=== PATIENT | female | born 1970 | race Caucasian/White ===

== ENCOUNTER 2017-07-08 09:59 | Emergency (ER) | payer OTHER ==
[2017-07-08 10:03] VITALS: TEMP 98.7; BMI 33.3
--- NOTE | 2017-07-08 10:14 | PDOC ---
Attending Attestation - HPI HPI: 07/08/17 11:13 The patient is a 47-year-old female, with a significant past medical history of type II diabetes and anemia, who presents to the ED with 1-month of vaginal bleeding. The patient states that her blood flow is light on some days and heavy on others. She presents here today because she experienced heavy bleeding overnight and went through 5 soaked pads; clots were noted. The patient was started on progesterone 9 days ago by her Oil Field Laborer doctor. The patient is concerned about the bleeding since she was recently admitted to the hospital 2 weeks ago for a hemoglobin of 5.9 and received 3 units. The patient denies any fever, chills, nausea, vomiting, diarrhea, or abdominal pain. Denies any chest pain or shortness of breath. PCP: Dr. Krystian Ortega [employer]YRUP SHED SUPERVISOR: Dr. Juno Leon - Physicial Exam PE: 07/08/17 11:14 GENERAL: Awake, alert, and fully oriented, in no acute distress. (+)Clammy due to vasovagal episode. HEAD: No signs of trauma EYES: PERRLA, EOMI, sclera anicteric, conjunctiva clear ENT: Auricles normal inspection, hearing grossly normal, nares patent, oropharynx clear without exudates. Moist mucosa NECK: Normal ROM, supple, no lymphadenopathy, JVD, or masses LUNGS: Breath sounds equal, clear to auscultation bilaterally. No wheezes, and no crackles HEART: (+)Tachy. Normal S1 and S2, no murmurs, rubs or gallops ABDOMEN: Soft, nontender, normoactive bowel sounds. No guarding, no rebound. No masses EXTREMITIES: Normal range of motion, no edema. No clubbing or cyanosis. No cords, erythema, or tenderness NEUROLOGICAL: Cranial nerves II through XII grossly intact. Normal speech, normal gait SKIN: Warm, Dry, normal turgor, no rashes or lesions noted <Shahrzad Angel - Last Filed: 07/08/17 11:13> - Resident Resident Name: Chari Mccray I - ED Attending Attestation I have performed the following: I have examined & evaluated the patient, The case was reviewed & discussed with the resident, I agree w/resident's findings & plan, Exceptions are as noted - Medical Decision Making 05/05/18 10:14 I, Dr. Lorene Horan DO, attest that this document has been prepared under my direction and personally reviewed by me in its entirety. I further attest, that it accurately reflects all work, treatment, procedures and medical decision -making performed by me. 07/08/17 11:00 a/p: 47yo female with heavy vaginal bleeding intermittently x 1 month -admitted for a blood transfusion mid june for hemoglobin of 5.9 -saw her airport attendant who started her on progesterone 9 days ago after seeing her Ob/ MEDIUM CYCLE SALESPERSON -no abd pain -bled through 5 pads overnight along with her underwear and PJs -will obtain labs, h/h, type and screen - pt tachy upon arrival concern for low h/h again -will obtain pelvic us to eval heavy menstrual cycle 07/08/17 13:42 hemoglobin 8.7 ultrasound shows ovarian cyst and blood in the cervix decreased bleeding today will d/c to home will need to follow up with her PMD/Ob.meter and regulator shop supervisor on Monday <Lorene Horan - Last Filed: 07/08/17 13:43> Attestations - Attestations 07/08/17 11:16 Documentation prepared by Shahrzad Angel, acting as medical tech for Lorene Horan DO. <Shahrzad Angel - Last Filed: 07/08/17 11:13>
--- NOTE | 2017-07-08 10:41 | PDOC ---
History of Present Illness - General Chief Complaint: Vaginal Bleeding Stated Complaint: BLEEDING Time Seen by Provider: 07/08/17 10:13 History Source: Patient Exam Limitations: No Limitations - History of Present Illness Initial Comments: 07/08/17 10:43 Pt is a 47 yo F with PMHx of type 2 diabetes, and recent anemia 06/15/17 ( transfused 3U) for vaginal bleed now presenting with prolonged and heavy menstrual bleed for the past 2 weeks. Patient has been having intermittent heavy bleeding for the past 2 weeks, which she felet was worse last night with multiple large clots about 3cm size with up to 5 pad changes last night and soaking of her bed and pyjamas. No dizziness, no weakness. Pt follows with a transition coach- Dr Anderson who started her one week ago on Norethindrone 0.35mg daily, with no improvement. She had an ultrasound done in the past which did not show any abnormality. LMP-07/01/17 1 alive (16year old) 07/08/17 11:04 Timing/Duration: getting worse Associated Symptoms: denies: chest pain, cough, diaphoresis, fever/chills, headaches, nausea/vomiting, shortness of breath, syncope Past History - Past Medical History Allergies/Adverse Reactions: Allergies Allergy/AdvReac Type Severity Reaction Status Date / Time No Known Allergies Allergy Verified 07/08/17 10:03 Home Medications: Ambulatory Orders Fenofibrate,Micronized [Antara] 30 mg PO DAILY 06/14/17 Metformin HCl [Metformin HCl ER] 1,000 mg PO BID 06/14/17 Venlafaxine HCl ER [Effexor Xr -] 150 mg PO DAILY 06/14/17 Ferrous Sulfate 325 mg PO DAILY 07/08/17 Anemia: Yes Asthma: No Cancer: No Cardiac Disorders: No CVA: No COPD: No CHF: No Dementia: No Diabetes: Yes GI Disorders: No Disorders: No HTN: Yes Hypercholesterolemia: Yes Liver Disease: No Seizures: No Thyroid Disease: No - Surgical History Abdominal Surgery: No Appendectomy: No Cardiac Surgery: No Cholecystectomy: No Lung Surgery: No Neurologic Surgery: No Orthopedic Surgery: No - Suicide/Smoking/Psychosocial Hx Smoking History: Never smoked Have you smoked in the past 12 months: No Hx Alcohol Use: No Drug/Substance Use Hx: No Substance Use Type: None Review of Systems - Review of Systems Able to Perform ROS?: Yes Is the patient limited Croatian proficient: No Constitutional: No: Chills, Diaphoresis, Fever, Loss of Appetite, Malaise, Night Sweats, Weakness HEENTM: No: Double Vision, Nose Congestion, Throat Pain Respiratory: No: Cough, Orthopnea, Shortness of Breath, SOB at Rest, Stridor, Wheezing, Productive cough Cardiac (ROS): No: Chest Pain, Edema ABD/GI: No: Blood Streaked Bowels, Nausea, Vomiting, Abdominal cramping : No: Burning, Dysuria, Discharge, Pain Musculoskeletal: No: Joint Pain, Joint Swelling Neurological: No: Headache, Numbness, Paresthesia, Tremors Hematologic/Lymphatic: Yes: Blood Clots. No: Easy Bleeding *Physical Exam - Vital Signs Last Vital Signs Temp Pulse Resp BP Pulse Ox 98.7 F 107 H 18 144/87 99 07/08/17 10:00 07/08/17 10:00 07/08/17 10:00 07/08/17 10:00 07/08/17 10:00 - Physical Exam General Appearance: Yes: Appropriately Dressed. No: Apparent Distress HEENT: positive: EOMI, CHAKA. negative: Scleral Icterus (L) Neck: positive: Supple Respiratory/Chest: positive: Lungs Clear, Normal Breath Sounds Cardiovascular: positive: S1, S2, Tachycardia Musculoskeletal: negative: Decreased Range of Motion Extremity: negative: Swelling, Calf Tenderness Neurologic: positive: Fully Oriented, Alert, Motor Strength 5/5. negative: Facial Droop, Confused ED Treatment Course - LABORATORY CBC & Chemistry Diagram: 07/08/17 09:50 07/08/17 09:50 - RADIOLOGY Radiology Studies Ordered: Category Date Time Status TRANSVAGINAL ULTRASOUND US [US] Stat Ultrasound 07/08/17 10:24 Ordered Medical Decision Making - Medical Decision Making 07/08/17 11:01 Considering recent anemia (5.9) requiring transfusion- we will do CBC, CMP, type and screen, coags, transvaginal US During the setting of the line patient became clammy as she had not eaten all day and is diabetic BGM ordered, Iv normal saline - 1L stat 07/08/17 11:03 [id number] 07/08/17 11:06 Transvaginal US- Slightly thickened endometrium and bulky appearance of the cervix, possibly representing blood within the endocervical canal. Bilateral ovarian cysts- L 4.4x4.4X2.2cm, R 2.8x2.7x2.2cm 07/08/17 13:43 Plan is to discharge home-Hgb-8.7-stable to follow up with obgyn as an outpatient *DC/Admit/Observation/Transfer Diagnosis at time of Disposition: Menometrorrhagia, Vaginal bleeding - Discharge Dispostion Disposition: HOME Condition at time of disposition: Stable Admit: No - Referrals Referrals: Krystian Ortega MD [Primary Care Provider] - 1 week - Patient Instructions Printed Discharge Instructions: DI for Vaginal Bleeding Additional Instructions: You were seen here for vaginal bleed Your blood count level was 8.7 and had not changed much from previous The transvaginal US- showed cysts on both sides, the largest being on the L 4.4x4.4x2.2 mm, and did not show any abnormalities to cause the bleed Please follow up with your obgyn in 2-3 days Follow up with your primary care doctor in one week If you think your symptoms are getting worse, with rapid bleed requiring up to 4 pad change in 2hrs, or shortness of breath or dizziness Please return to the emergency room - Post Discharge Activity - Attestations Physician Attestion: 07/08/17 13:57 Chari Mccray MD
[2017-07-08] MEDS ORDERED: SODIUM CHLORIDE 0.9% 500 ML INFUS.BAG IV ONE (10:56)
[2017-07-08 11:14] LABS: BASO % 1.3 % (0-2.0); EOS % 1.7 % (0-4.5); HEMATOCRIT 27.5 % (32.4-45.2); HEMOGLOBIN 8.7 GM/dL (10.7-15.3); MCH 24.5 pg (25.7-33.7); MCHC 31.7 g/dl (32.0-36.0); MEAN CELL VOLUME 77.4 fl (80-96); MEAN PLT VOLUME 8.1 fl (7.5-11.1); MONO % 6.5 % (3.8-10.2); NEUT % 66.5 % (42.8-82.8); PLATELET COUNT 545 K/MM3 (134-434); RBC 3.55 M/mm3 (3.60-5.2); WHITE BLOOD COUNT 9.2 K/mm3 (4.0-10.0)
[2017-07-08 11:34] LABS: INR 1.09 (0.82-1.09); PROTHROMBIN TIME (PATIENT) 12.3 SEC (9.7-13.0)
[2017-07-08 11:36] LABS: ACTIVATED PTT 24.4 SECONDS (26.9-34.4)
[2017-07-08 11:48] LABS: ALBUMIN 3.6 g/dl (3.4-5.0); ANION GAP 9 (8-16); BLOOD UREA NITROGEN 11 mg/dL (7-18); CALCIUM 9.1 mg/dL (8.5-10.1); CHLORIDE 106 mmol/L (98-107); CO2 25 mmol/L (21-32); CREATININE 0.7 mg/dL (0.55-1.02); GLUCOSE,RANDOM 102 mg/dL (74-106); POTASSIUM 4.6 mmol/L (3.5-5.1); SGOT/AST 23 U/L (15-37); SGPT/ALT 27 U/L (12-78); SODIUM 140 mmol/L (136-145)
[2017-07-08 11:49] LABS: ALK PHOS 75 U/L (45-117); BILIRUBIN,TOTAL 0.3 mg/dL (0.2-1.0); TOT PROT 7.5 g/dl (6.4-8.2)
[2017-07-08 13:04] VITALS: BP 109/65; PULSE 90
== END 2017-07-08 14:15 | disposition home or self-care (01) ==
LOC: JER 09:59
PROC: 3E0337Z Introduction of Electrolytic and Water Balance Substance into Peripheral Vein, Percutaneous Approach (ICD-10-PCS; principal; 2017-07-08)
DX: N92.1 Excessive and frequent menstruation with irregular cycle (principal); N83.292 Other ovarian cyst, left side; N83.291 Other ovarian cyst, right side; D64.9 Anemia, unspecified
CPT/HCPCS: 36415; 76830-TC; 80053; 82962; 85025; 85610; 85730; 86850; 86900; 86901; 99283-25

== ENCOUNTER 2017-07-10 06:03 | Observation (INO) | payer OTHER ==
[2017-07-10 07:09] LABS: BASO % 0.9 % (0-2.0); EOS % 0.6 % (0-4.5); HEMATOCRIT 19.8 % (32.4-45.2); LYMPH % 13.8 % (8-40); MEAN CELL VOLUME 78.3 fl (80-96); MEAN PLT VOLUME 7.8 fl (7.5-11.1); MONO % 5.2 % (3.8-10.2); NEUT % 79.5 % (42.8-82.8); PLATELET COUNT 356 K/MM3 (134-434); RBC 2.53 M/mm3 (3.60-5.2); RDW 25.2 % (11.6-15.6); WHITE BLOOD COUNT 10.6 K/mm3 (4.0-10.0)
[2017-07-10 07:21] LABS: HEMOGLOBIN 6.3 GM/dL (10.7-15.3)
[2017-07-10 07:49] LABS: ALK PHOS 68 U/L (45-117); ANION GAP 5 (8-16); BILIRUBIN,TOTAL 0.2 mg/dL (0.2-1.0); BLOOD UREA NITROGEN 12 mg/dL (7-18); CALCIUM 7.8 mg/dL (8.5-10.1); CHLORIDE 112 mmol/L (98-107); CO2 24 mmol/L (21-32); CREATININE 0.6 mg/dL (0.55-1.02); GLUCOSE,RANDOM 164 mg/dL (74-106); POTASSIUM 4.7 mmol/L (3.5-5.1); SGOT/AST 16 U/L (15-37); SGPT/ALT 21 U/L (12-78); SODIUM 141 mmol/L (136-145); TOT PROT 6.3 g/dl (6.4-8.2)
[2017-07-10 08:00] LABS: INR 1.06 (0.82-1.09)
--- NOTE | 2017-07-10 08:01 | PDOC ---
History of Present Illness - General Chief Complaint: Vaginal Bleeding Stated Complaint: VAGINAL BLEEDING Time Seen by Provider: 07/10/17 07:03 History Source: Patient Exam Limitations: No Limitations - History of Present Illness Initial Comments: 07/10/17 08:00 Patient is a 47F with history of vaginal bleeding and anemia here today complaining of vaginal bleeding. She was seen two days ago in the ED for vaginal bleeding. Hgb was stable at 8.7. TVUS showed thickened endometrium with bilateral ovarian cysts. She was discharged with return precautions. Today, she arrived via EMS after feeling dizzy and like she was about to collapse in the bathroom this morning. She endorses decreased exercise tolerance and shortness of breath. Denies chest pain, fevers, chills, nausea, vomiting. She states that she's passed multiple clots with 5-6 pads used today. She has recently started taking " control" to help alleviate her vaginal bleeding. Takes aspirin, denies other blood thinners. Past History - Past Medical History Allergies/Adverse Reactions: Allergies Allergy/AdvReac Type Severity Reaction Status Date / Time No Known Allergies Allergy Verified 07/10/17 06:14 Home Medications: Ambulatory Orders Fenofibrate,Micronized [Antara] 30 mg PO DAILY 06/14/17 Metformin HCl [Metformin HCl ER] 1,000 mg PO BID 06/14/17 Venlafaxine HCl ER [Effexor Xr -] 150 mg PO DAILY 06/14/17 Ferrous Sulfate 325 mg PO DAILY 07/08/17 Dapagliflozin Propanediol [Farxiga] 5 mg PO DAILY 07/10/17 Lisinopril 5 mg PO DAILY 07/10/17 Anemia: Yes Asthma: No Cancer: No Cardiac Disorders: No CVA: No COPD: No CHF: No Dementia: No Diabetes: Yes GI Disorders: No Disorders: No HTN: Yes Hypercholesterolemia: Yes Liver Disease: No Seizures: No Thyroid Disease: No - Surgical History Abdominal Surgery: No Appendectomy: No Cardiac Surgery: No Cholecystectomy: No Lung Surgery: No Neurologic Surgery: No Orthopedic Surgery: No - Suicide/Smoking/Psychosocial Hx Smoking History: Never smoked Have you smoked in the past 12 months: No Information on smoking cessation initiated: No Hx Alcohol Use: No Drug/Substance Use Hx: No Substance Use Type: None Review of Systems - Review of Systems Comments:: 07/10/17 08:09 GENERAL/CONSTITUTIONAL: No fever or chills. Positive for weakness. HEAD, EYES, EARS, NOSE AND THROAT: No change in vision. No sore throat. CARDIOVASCULAR: No chest pain. Positive for shortness of breath RESPIRATORY: No cough, wheezing, or hemoptysis. GASTROINTESTINAL: No nausea, vomiting, diarrhea or constipation. GENITOURINARY: No dysuria, frequency, or change in urination. SKIN: No rash NEUROLOGIC: No headache, vertigo, loss of consciousness, or change in strength/ sensation. ENDOCRINE: No increased thirst. No abnormal weight change HEMATOLOGIC/LYMPHATIC: Positive for history of anemia and easy bleeding. ALLERGIC/IMMUNOLOGIC: No hives or skin allergy. *Physical Exam - Vital Signs Last Vital Signs Temp Pulse Resp BP Pulse Ox 97.7 F 95 H 20 98/66 98 07/10/17 06:14 07/10/17 07:15 07/10/17 07:15 07/10/17 07:15 07/10/17 07:15 - Physical Exam Comments: 07/10/17 08:10 GENERAL: Awake, alert, and fully oriented, in no acute distress HEAD: No signs of trauma, normocephalic, atraumatic EYES: PERRLA, EOMI, sclera anicteric, conjunctiva clear ENT: Auricles normal inspection, hearing grossly normal, nares patent, oropharynx clear without exudates. Moist mucosa LUNGS: No distress, speaks full sentences, clear to auscultation bilaterally HEART: Regular rate and rhythm, normal S1 and S2, no murmurs, rubs or gallops, peripheral pulses normal and equal bilaterally. ABDOMEN: Soft, nontender, normoactive bowel sounds. No guarding, no rebound. No masses EXTREMITIES: Normal inspection, Normal range of motion, no edema. No clubbing or cyanosis. NEUROLOGICAL: Cranial nerves II through XII grossly intact. Normal speech, no focal sensorimotor deficits SKIN: Warm, Dry, normal turgor, no rashes or lesions noted. ED Treatment Course - LABORATORY CBC & Chemistry Diagram: 07/10/17 07:00 07/10/17 07:00 - ADDITIONAL ORDERS Additional order review: Laboratory Results 07/10/17 07/10/17 07:00 07:00 Sodium 141 Potassium 4.7 Chloride 112 H Carbon Dioxide 24 Anion Gap 5 L BUN 12 Creatinine 0.6 Creat Clearance w eGFR > 60 Random Glucose 164 H Calcium 7.8 L Total Bilirubin 0.2 D AST 16 ALT 21 Alkaline Phosphatase 68 Total Protein 6.3 L Albumin 3.0 L Crossmatch See Detail 07/10/17 07:00 RBC 2.53 L D MCV 78.3 L MCHC 32.0 RDW 25.2 H MPV 7.8 Neutrophils % 79.5 Lymphocytes % 13.8 D Monocytes % 5.2 Eosinophils % 0.6 Basophils % 0.9 - RADIOLOGY Radiology Studies Ordered: Category Date Time Status ABDOMEN & PELVIS CT WITH CONTR [CT] Stat CT Scan 07/10/17 08:00 Ordered Medical Decision Making - Medical Decision Making 07/10/17 08:13 Patient is a 47F with history of dm, anemia and vaginal bleeding here with near syncope. Vital signs stable and normal. Labs show: Laboratory Tests 07/10/17 07/10/17 07:00 07:37 WBC 10.6 H Hgb 6.3 L* D Hct 19.8 L D Plt Count 356 D PT with INR 12.00 INR 1.06 PTT (Actin FS) 18.0 L Patient has had drop of 2.4 in 2 days. 2 units ordered, EKG ordered, will admit to Dr Ortega. Dr Ortega contacted, accepted admission, requests OBGYN consult and abd/pelvis CT scan. Dr Ann contacted for OBGYN, will see patient. 07/10/17 08:33 EKG shows normal sinus rhythm with rate of 85bpm. QTc prolonged to 464. No st elevations/depressions. T wave inversions in I and aVL. Normal QRS/TX intervals. *DC/Admit/Observation/Transfer Diagnosis at time of Disposition: Anemia, Vaginal bleeding - Discharge Dispostion Condition at time of disposition: Stable Admit: Yes Decision to Admit order Date/Time: Decision to Admit Order Category Date Time Status Decision to Admit to Hospital Routine Admission 07/10/17 07:56 Active - Referrals - Patient Instructions - Post Discharge Activity
--- NOTE | 2017-07-10 09:15 | PDOC ---
Attending Attestation - Resident Resident Name: Dieter Faustin - ED Attending Attestation I have performed the following: I have examined & evaluated the patient, The case was reviewed & discussed with the resident, I agree w/resident's findings & plan - HPI HPI: 07/10/17 09:12 47-year-old female with ongoing heavy vaginal bleeding, dictated by anemia requiring a transfusion in the past presents now with near syncopal episode and palpitations in the setting of heavier bleeding over the last few days. No abdominal or pelvic pain, no chest pain, no head injury. Did not fully lose consciousness, but became very nauseous and diaphoretic. - Physicial Exam PE: 07/10/17 09:13 Vital signs normal Well-appearing and feeling better now while lying in stretcher Slightly pale Abdomen is benign Cardiac pulmonary exam is normal, no audible murmur - Medical Decision Making 07/10/17 09:13 Patient seen and evaluated with the resident. I agree with the overall evaluation, assessment, and management with the following summary of visit: 47-year-old female with near syncope in the setting of increased vaginal bleeding. Likely symptomatic anemia, hemodynamically stable without evidence of hemorrhagic shock. CBC confirms hemoglobin 6.3, a 2 point drop from only 3 days ago Chemistries are within normal limits EKG is sinus at 85 with T-wave inversion in 1 and aVL, no acute ST changes, rate of 85, QTC 464. Case discussed with Dr. Ortega, will admit and transfuse. He is requesting CAT scan of the abdomen and pelvis, which was ordered. Patient was started on OCP only one week ago. Heart Score/ECG Review #1 ECG reviewed & interpreted by me at: 08:37 General ECG Interpretation: Sinus Rhythm, Normal Rate (85), Normal Intervals ( qtc 464), No acute ischemic changes (TWI I/AVL)
[2017-07-10] MEDS ORDERED: VENLAFAXINE HCL 75 MG E.R. CAPSULES (FP) PO SCH ×2 (10:00→22:00)
--- NOTE | 2017-07-10 10:35 | EKG ---
Test Reason : Blood Pressure : / mmHG Vent. Rate : 085 BPM Atrial Rate : 085 BPM P-R Int : 146 ms QRS Dur : 098 ms QT Int : 390 ms P-R-T Axes : 066 016 102 degrees QTc Int : 464 ms NORMAL SINUS RHYTHM POSSIBLE LEFT ATRIAL ENLARGEMENT NONSPECIFIC T WAVE ABNORMALITY PROLONGED QT ABNORMAL ECG NO PREVIOUS ECGS AVAILABLE Confirmed by ROMAINE WHITEHEAD MD ([id number]) on 07/10/2017 10:35:16 AM Referred By: Confirmed By:ROMAINE WHITEHEAD MD
[2017-07-10] MEDS: LISINOPRIL 5 MG TABLET (FP) PO SCH (11:00)
[2017-07-10] MEDS: FERROUS GLUCONATE 324 MG TAB (FP) PO SCH ×2 (12:00→17:55)
[2017-07-10 12:31] VITALS: BMI 33.0
[2017-07-10] MEDS: SODIUM CHLORIDE 1,000 ML IV SCH ×2 (14:04→21:09)
--- NOTE | 2017-07-10 14:34 | CON.OBG ---
Consult Consult Specialty:: Gynecology Referred by:: Dr. Krystian Ortega Reason for Consultation:: Vaginal bleeding and anemia - History of Present Illness Chief Complaint: near syncope, weakness, vaginal bleeding History of Present Illness: 47 y/o P1 female presents today with complaints of near syncopal episode at home. Patient admits to heavy vaginal bleeding which has worsened over the past 2 weeks. Pt was several weeks ago with same complaint and had 3 units transfused. Saw her NBA PLAYER in [place] and was started on Micronor OCPs. Pt states bleeding worsened over the weekend, had vaginal ultrasound, was discharged home. Then came back today with worsening symptoms of anemia. Hgb 6.3, pt currently admitted for transfusion. - History Source History Provided By: Patient - Past Medical History Cardio/Vascular: Yes: HTN ...LMP: 07/10/17 ...LMP Comment: noted heavy bleeding x 2 days now ...: No Endocrine: Yes: Diabetes Mellitus Additional Medical History: Hyperlipidemia - Past Surgical History Past Surgical History: Yes: None - Alcohol/Substance Use Hx Alcohol Use: No History of Substance Use: reports: None - Smoking History Smoking history: Never smoked Have you smoked in the past 12 months: No - Social History ADL: Independent History of Recent Travel: No Home Medications - Allergies Allergies/Adverse Reactions: Allergies Allergy/AdvReac Type Severity Reaction Status Date / Time No Known Allergies Allergy Verified 07/10/17 06:14 - Home Medications Home Medications: Ambulatory Orders Fenofibrate,Micronized [Antara] 30 mg PO DAILY 06/14/17 Metformin HCl [Metformin HCl ER] 1,000 mg PO BID 06/14/17 Venlafaxine HCl ER [Effexor Xr -] 150 mg PO DAILY 06/14/17 Ferrous Sulfate 325 mg PO DAILY 07/08/17 Dapagliflozin Propanediol [Farxiga] 5 mg PO DAILY 07/10/17 Lisinopril 5 mg PO DAILY 07/10/17 Family Disease History - Family Disease History Family Disease History: Other: Grandparent ( colon ca) Review of Systems - Review of Systems Cardiovascular: reports: Shortness of Breath Gastrointestinal: denies: Abdominal Pain, Nausea, Vomiting, Other Genitourinary: reports: Vaginal Bleeding Physical Exam-INSIDE OUTSIDE SALES REPRESENTATIVE Vital Signs: Vital Signs Temperature 97.9 F 07/10/17 13:43 Pulse Rate 95 H 07/10/17 13:43 Respiratory Rate 18 05/07/18 13:43 Blood Pressure 118/61 07/10/17 13:43 O2 Sat by Pulse Oximetry (%) 98 07/10/17 09:30 Constitutional: Yes: Well Nourished, No Distress Eyes: Yes: Conjunctiva Clear HENT: Yes: Atraumatic, Normocephalic Neck: Yes: Trachea Midline Respiratory: Yes: WNL Gastrointestinal: Yes: Soft Vaginal Exam: Yes: Bleeding Extremities: Yes: WNL Neurological: Yes: Alert, Oriented Psychiatric: Yes: Alert, Oriented Labs: CBC, BMP 07/10/17 07:00 07/10/17 07:00 Problem List - Problems (1) Vaginal bleeding Code(s): N93.9 - ABNORMAL UTERINE AND VAGINAL BLEEDING, UNSPECIFIED (2) Anemia Code(s): D64.9 - ANEMIA, UNSPECIFIED Assessment/Plan Vaginal bleeding Anemia Agree with transfusion needs endometrial sampling/D&C - will await transfusion to be finished and recheck H&H before proceeding with surgery - july schedule for 5 pt aware
--- NOTE | 2017-07-10 14:41 | HP ---
Admitting History and Physical - Admission Chief Complaint: pt with sever anemia near syncope. heavy vag bleeding. was in er 2 days ago sent home. was admitted 2 wks ago for prbc tranfusion History Source: Patient Limitations to Obtaining History: No Limitations - Past Medical History ...LMP: 07/10/17 ...LMP Comment: noted heavy bleeding x 2 days now ...: No Heme/Onc: Yes: Anemia - Past Surgical History Past Surgical History: Yes: None - Smoking History Smoking history: Never smoked Have you smoked in the past 12 months: No - Alcohol/Substance Use Hx Alcohol Use: No History of Substance Use: reports: None - Social History ADL: Independent History of Recent Travel: No Home Medications - Allergies Allergies/Adverse Reactions: Allergies Allergy/AdvReac Type Severity Reaction Status Date / Time No Known Allergies Allergy Verified 07/10/17 06:14 - Home Medications Home Medications: Ambulatory Orders Fenofibrate,Micronized [Antara] 30 mg PO DAILY 06/14/17 Metformin HCl [Metformin HCl ER] 1,000 mg PO BID 06/14/17 Venlafaxine HCl ER [Effexor Xr -] 150 mg PO DAILY 06/14/17 Ferrous Sulfate 325 mg PO DAILY 07/08/17 Dapagliflozin Propanediol [Farxiga] 5 mg PO DAILY 07/10/17 Lisinopril 5 mg PO DAILY 07/10/17 Family Disease History - Family Disease History Family History: Unremarkable Family Disease History: Other: Grandparent ( colon ca) Physical Examination Vital Signs: Vital Signs Temperature 97.9 F 07/10/17 13:43 Pulse Rate 95 H 07/10/17 13:43 Respiratory Rate 18 07/10/17 13:43 Blood Pressure 118/61 07/10/17 13:43 O2 Sat by Pulse Oximetry (%) 98 07/10/17 09:30 Constitutional: Yes: Well Nourished, Pallor HENT: Yes: WNL, Tonsillar Exudate Neck: Yes: Rigid Cardiovascular: Yes: S4 Gastrointestinal: Yes: WNL Peripheral Pulses WNL: Yes Integumentary: Yes: WNL Neurological: Yes: WNL ...Motor Strength: WNL Psychiatric: Yes: WNL Labs: CBC, BMP 07/10/17 07:00 07/10/17 07:00 Assessment/Plan 2 units prbcs agricultural chemist fu? d?c chk labs in am
[2017-07-10 15:13] LABS: BASO % 0.6 % (0-2.0); EOS % 0.3 % (0-4.5); LYMPH % 13.2 % (8-40); MCH 25.6 pg (25.7-33.7); MCHC 32.5 g/dl (32.0-36.0); MEAN CELL VOLUME 78.8 fl (80-96); MEAN PLT VOLUME 8.6 fl (7.5-11.1); MONO % 5.8 % (3.8-10.2); NEUT % 80.1 % (42.8-82.8); PLATELET COUNT 378 K/MM3 (134-434); RBC 2.54 M/mm3 (3.60-5.2); RDW 23.6 % (11.6-15.6); WHITE BLOOD COUNT 9.6 K/mm3 (4.0-10.0)
[2017-07-10 15:26] LABS: HEMOGLOBIN 6.5 GM/dL (10.7-15.3)
[2017-07-10] MEDS: metFORMIN HCL 500 MG TABLET (FP) PO SCH (17:06)
[2017-07-11] MEDS: metFORMIN HCL 500 MG TABLET (FP) PO SCH ×2 (06:02→15:33)
[2017-07-11 07:30] LABS: BASO % 0.7 % (0-2.0); EOS % 1.2 % (0-4.5); HEMATOCRIT 24.7 % (32.4-45.2); HEMOGLOBIN 8.3 GM/dL (10.7-15.3); LYMPH % 24.2 % (8-40); MCH 27.2 pg (25.7-33.7); MCHC 33.8 g/dl (32.0-36.0); MEAN CELL VOLUME 80.4 fl (80-96); MEAN PLT VOLUME 8.4 fl (7.5-11.1); MONO % 5.1 % (3.8-10.2); NEUT % 68.8 % (42.8-82.8); PLATELET COUNT 341 K/MM3 (134-434); RBC 3.07 M/mm3 (3.60-5.2); RDW 21.7 % (11.6-15.6); WHITE BLOOD COUNT 9.2 K/mm3 (4.0-10.0)
[2017-07-11 07:56] LABS: CHLORIDE 110 mmol/L (98-107); POTASSIUM 4.3 mmol/L (3.5-5.1); SODIUM 142 mmol/L (136-145)
[2017-07-11 08:09] LABS: ALBUMIN 3.1 g/dl (3.4-5.0); ALK PHOS 60 U/L (45-117); ANION GAP 7 (8-16); BILIRUBIN,TOTAL 0.5 mg/dL (0.2-1.0); BLOOD UREA NITROGEN 10 mg/dL (7-18); CO2 25 mmol/L (21-32); CREATININE 0.7 mg/dL (0.55-1.02); GLUCOSE,RANDOM 135 mg/dL (74-106); SGOT/AST 15 U/L (15-37); SGPT/ALT 18 U/L (12-78); TOT PROT 6.3 g/dl (6.4-8.2)
[2017-07-11] MEDS: FERROUS GLUCONATE 324 MG TAB (FP) PO SCH ×3 (09:21→18:15)
--- NOTE | 2017-07-11 10:39 | PN ---
Progress Note, Physician Chief Complaint: feels good vss - Current Medication List Current Medications: Active Medications Ferrous Gluconate (Fergon -) 324 mg PO TIDCM [facility] Last Admin: 07/11/17 09:21 Dose: Not Given Sodium Chloride (Normal Saline -) 1,000 mls @ 42 mls/hr IV ASDIR [facility] Last Admin: 07/10/17 21:09 Dose: 42 mls/hr Lisinopril (Prinivil) 5 mg PO DAILY [facility] Last Admin: 07/10/17 11:00 Dose: 5 mg Metformin HCl (Glucophage -) 1,000 mg PO BID@0700,1630 [facility] Last Admin: 07/11/17 06:02 Dose: Not Given Venlafaxine HCl (Effexor Xr -) 150 mg PO HS [facility] Last Admin: 07/10/17 22:00 Dose: 150 mg - Objective Vital Signs: Vital Signs Temperature 98 F 07/11/17 06:00 Pulse Rate 94 H 07/11/17 06:00 Respiratory Rate 18 07/11/17 06:00 Blood Pressure 124/68 07/11/17 06:00 O2 Sat by Pulse Oximetry (%) 98 07/10/17 21:00 Constitutional: Yes: No Distress Eyes: Yes: WNL HENT: Yes: WNL Neck: Yes: WNL Cardiovascular: Yes: WNL Respiratory: Yes: WNL Gastrointestinal: Yes: WNL Genitourinary: Yes: WNL Breast(s): Yes: WNL Musculoskeletal: Yes: WNL Extremities: Yes: WNL Edema: Yes Labs: CBC, BMP 07/11/17 06:00 07/11/17 06:00 INR, PTT INR 1.06 (0.82-1.09) 07/10/17 07:37 Assessment/Plan d/dand c today depending on results may d/c today cbc in am out pt [id number]
--- NOTE | 2017-07-11 11:22 | PN ---
Progress Note, Physician Chief Complaint: Pt seen this am. States bleeding is heavy again today with clots (was light yesterday) denies SOB/light headedness/CP has been NPO - Current Medication List Current Medications: Active Medications Ferrous Gluconate (Fergon -) 324 mg PO TIDCM [facility] Last Admin: 07/11/17 09:21 Dose: Not Given Sodium Chloride (Normal Saline -) 1,000 mls @ 42 mls/hr IV ASDIR [facility] Last Admin: 07/10/17 21:09 Dose: 42 mls/hr Lisinopril (Prinivil) 5 mg PO DAILY [facility] Last Admin: 07/10/17 11:00 Dose: 5 mg Metformin HCl (Glucophage -) 1,000 mg PO BID@0700,1630 [facility] Last Admin: 07/11/17 06:02 Dose: Not Given Venlafaxine HCl (Effexor Xr -) 150 mg PO HS [facility] Last Admin: 07/10/17 22:00 Dose: 150 mg - Objective Vital Signs: Vital Signs Temperature 98 F 07/11/17 06:00 Pulse Rate 94 H 07/11/17 06:00 Respiratory Rate 18 07/11/17 06:00 Blood Pressure 124/68 07/11/17 06:00 O2 Sat by Pulse Oximetry (%) 98 07/10/17 21:00 Constitutional: Yes: Well Nourished, No Distress, Calm HENT: Yes: Atraumatic, Normocephalic Respiratory: Yes: Regular Gastrointestinal: Yes: Soft Genitourinary: Yes: Vaginal Bleeding Neurological: Yes: Alert, Oriented Psychiatric: Yes: Alert, Oriented Labs: CBC, BMP 07/11/17 06:00 07/11/17 06:00 INR, PTT INR 1.06 (0.82-1.09) 07/10/17 07:37 Problem List - Problems (1) Vaginal bleeding Code(s): N93.9 - ABNORMAL UTERINE AND VAGINAL BLEEDING, UNSPECIFIED (2) Anemia Code(s): D64.9 - ANEMIA, UNSPECIFIED Assessment/Plan Vaginal bleeding and anemia improvement in H/H noted plan for hysteroscopy D&C today at 2pm - procedure explained to patient in detail continue to monitor H&H/bleeding post op
[2017-07-11] MEDS: SODIUM CHLORIDE 1,000 ML IV SCH (12:42)
[2017-07-11] MEDS ORDERED: SUCCINYLCHOLINE CHLORIDE 200 MG/10 ML VIAL ONE (15:22)
[2017-07-11] MEDS ORDERED: PROPOFOL 20 ML ONE (15:22)
[2017-07-11] MEDS ORDERED: MIDAZOLAM HCL 2 MG/2 ML SINGLE DOSE VIAL ONE (15:22)
[2017-07-11] MEDS: LISINOPRIL 5 MG TABLET (FP) PO SCH (15:23)
[2017-07-11] MEDS ORDERED: LIDOCAINE HCL/PF 2% SDV 5ML VIAL ONE (15:29)
--- NOTE | 2017-07-11 15:34 | PN ---
Progress Note (short form) - Note Progress Note: In preop holding area I discussed procedure with patient in detail Risks/benefits/alternatives to procedure discussed and pt agrees with hysteroscopy D&C for vaginal bleeding and anemia. Discussed risk of bleeding/infection/uterine rupture etc. Consents signed today anesthesia aware for hysteroscopy D&C Problem List - Problems (1) Vaginal bleeding Code(s): N93.9 - ABNORMAL UTERINE AND VAGINAL BLEEDING, UNSPECIFIED (2) Anemia Code(s): D64.9 - ANEMIA, UNSPECIFIED
--- NOTE | 2017-07-11 16:16 | OP ---
Operative Note - Note: Operative Date: 07/11/17 ([id number] dictation number) Pre-Operative Diagnosis: vaginal bleeding, anemia Operation: hysteroscopy D&C Post-Operative Diagnosis: Same as Pre-op Surgeon: Maggy Ann Anesthesia: General (with LMA) Estimated Blood Loss (mls): 20 Operative Report Dictated: Yes
[2017-07-11] MEDS ORDERED: SODIUM CHLORIDE 1,000 ML IV SCH (16:40)
[2017-07-11] MEDS ORDERED: PT OWN MED DRAWER 7, Y5N ONE (20:53)
[2017-07-11] MEDS ORDERED: VENLAFAXINE HCL 75 MG E.R. CAPSULES (FP) PO SCH (22:00)
--- NOTE | 2017-07-11 23:51 | OP ---
DATE OF OPERATION: 07/11/2017 PREOPERATIVE DIAGNOSIS: Heavy vaginal bleeding and anemia. POSTOPERATIVE DIAGNOSIS: Heavy vaginal bleeding and anemia. PROCEDURE: Hysteroscopy and suction dilation and curettage. SURGEON: Maggy Ann M.D. ANESTHESIA: RNA ESTIMATED BLOOD LOSS: 20 mL. SPECIMEN: Included endometrial curettings. COMPLICATIONS: None. COUNTS: Sponge, and instrument count correct. DISPOSITION: Stable to PACU. BRIEF HISTORY AND PROCEDURE: Patient is a 47-year-old female who is admitted to [facility] on July 10, 2017, with complaints of heavy vaginal bleeding off and on over the last several months. The patient was admitted with anemia and received a blood transfusion. Upon discussing options with the patient, secondary to her heavy vaginal bleeding, it was discussed that endometrial sampling was a necessity to help diagnosis and potentially for symptom relief. Patient agreed to undergo a D and C procedure with hysteroscopy. Consents were signed for the procedure on July 11, 2017. The patient was then taken back to the operating room where she was given anesthesia with LMA. A hard timeout was performed. A speculum was placed in the vagina. The cervix was visualized and the anterior lip was grasped with the tenaculum. The cervix was dilated to accommodate a diagnostic hysteroscope which was advanced to the fundus. Excessive proliferative tissue was noted in all 4 quadrants of the uterus. No fibroids or polyps were noted. Suction D & C was performed in all 4 ramirez of the uterus, and endometrial curetting was sent to pathology for permanent evaluation. Tenaculum was removed from the cervix. Minimal bleeding was noted from the cervical os. Al instruments were removed from the vagina, and counts were reported to be correct. The patient tolerated the procedure well and recovered in stable condition to the PACU after procedure at the time of this dictation. MAGGY ANN DO [id number] MTDD
[2017-07-12] MEDS ORDERED: metFORMIN HCL 500 MG TABLET (FP) PO SCH (07:00)
[2017-07-12 09:05] LABS: BASO % 0.7 % (0-2.0); EOS % 1.6 % (0-4.5); HEMATOCRIT 24.3 % (32.4-45.2); LYMPH % 21.8 % (8-40); MCHC 32.8 g/dl (32.0-36.0); MEAN CELL VOLUME 82.4 fl (80-96); MEAN PLT VOLUME 8.4 fl (7.5-11.1); MONO % 5.3 % (3.8-10.2); NEUT % 70.6 % (42.8-82.8); PLATELET COUNT 305 K/MM3 (134-434); RBC 2.95 M/mm3 (3.60-5.2); RDW 21.4 % (11.6-15.6); WHITE BLOOD COUNT 8.1 K/mm3 (4.0-10.0)
[2017-07-12] MEDS ORDERED: PT OWN MED DRAWER 7, Y5N ONE (09:44)
[2017-07-12] MEDS: FERROUS GLUCONATE 324 MG TAB (FP) PO SCH (09:45)
[2017-07-12 09:49] VITALS: BP 137/81; PULSE 92; TEMP 98
--- NOTE | 2017-07-12 09:51 | DS ---
Physical Examination Vital Signs: Vital Signs Temperature 98 F 07/12/17 09:49 Pulse Rate 92 H 07/12/17 09:49 Respiratory Rate 18 07/12/17 09:49 Blood Pressure 137/81 07/12/17 09:49 O2 Sat by Pulse Oximetry (%) 96 07/11/17 23:55 Labs: CBC, BMP 07/12/17 06:00 07/11/17 06:00 Discharge Summary Reason For Visit: ANEMIA Current Active Problems Anemia (Acute) Vaginal bleeding (Acute) Procedures: Principal: D&C. Blood Transfusion Hospital Course: Pt admitted with heavy vaginal bleeding and severe anemia. Pt underwent blood transfusion and a D&C. The patient recovered well and was discharged home on post operative day 1, hospital day 3. Condition: Good - Instructions Diet, Activity, Other Instructions: resume all home meds no sex or anything in the vagina for 2 weeks make an appointment with gynecology for 2 weeks following your surgery call your doctor if your symptoms return or worsen Referrals: Maggy Ann DO [Staff Physician] - Disposition: HOME - Home Medications Comprehensive Discharge Medication List: Ambulatory Orders Fenofibrate,Micronized [Antara] 30 mg PO DAILY 06/14/17 Metformin HCl [Metformin HCl ER] 1,000 mg PO BID 06/14/17 Venlafaxine HCl ER [Effexor Xr -] 150 mg PO DAILY 06/14/17 RX: Ferrous Sulfate 325 mg PO DAILY 07/08/17 Dapagliflozin Propanediol [Farxiga] 5 mg PO DAILY 07/10/17 RX: Lisinopril 5 mg PO DAILY 07/10/17
[2017-07-12] MEDS ORDERED: LISINOPRIL 5 MG TABLET (FP) PO SCH (10:00)
--- NOTE | 2017-07-14 12:37 | PATH ---
Surgical Pathology Report Patient Name: QUINTENJune Med. Rec. #: [id number] /Age/Gender: 1970 (Age: 47) / F Account: [id number] Location: [facility] MED/SURG Taken: 07/11/2017 Received: 07/13/2017 Reported: 07/14/2017 Physicians: Janene Brunson M.D. Specimen(s) Received SUCTION CURETTING Clinical History Vaginal bleeding, anemia Final Diagnosis ENDOMETRIUM, SUCTION CURETTAGE: FRAGMENTS OF SECRETORY ENDOMETRIUM WITH GLANDULAR AND STROMAL BREAKDOWN. Electronically Signed Tamar Ashley M.D. Gross Description Received in formalin labeled "suction curetting," is a 3.5 x 3.0 x 0.3 cm aggregate of prabhakar soft tissue fragments. The formalin is filtered and the specimen is entirely submitted in 2 cassettes. DL/07/13/2017 saudi/07/13/2017
== END 2017-07-12 10:39 | disposition home or self-care (01) ==
LOC: JER 06:03 → UNDOADMOB 07:56 → JERBED 07:56 → INTOOBSV 07:56 → J7W 09:05 → JERBED 09:05 → J7W 07-11 10:39
PROVIDERS: ADMIT Family Medicine; ATTEND Family Medicine
PROC: 0UDB8ZX Extraction of Endometrium, Via Natural or Artificial Opening Endoscopic, Diagnostic (ICD-10-PCS; principal; 2017-07-11 14:00)
PROC: 30233N1 Transfusion of Nonautologous Red Blood Cells into Peripheral Vein, Percutaneous Approach (ICD-10-PCS; 2017-07-11 14:00)
DX: N93.9 Abnormal uterine and vaginal bleeding, unspecified (principal); R06.02 Shortness of breath; D64.9 Anemia, unspecified; I10 Essential (primary) hypertension; E78.5 Hyperlipidemia, unspecified; E11.9 Type 2 diabetes mellitus without complications; Z79.84 Long term (current) use of oral hypoglycemic drugs
CPT/HCPCS: 36415; 36430; 74177-TC; 80048; 80053; 82962; 83036; 84443; 84703; 85025; 85610; 85730; 86304; 86850; 86900; 86901; 86922; 88305-TC; 93005; 93010; 94760; 99285-25; G0378; J7030; P9038; P9058

== ENCOUNTER 2023-07-21 06:26 | Day surgery (SDC) | payer OTHER ==
[2023-07-17 14:32] VITALS: BMI 31.8
[2023-07-21 07:00] VITALS: RESP 16
[2023-07-21] MEDS ORDERED: LIDOCAINE HCL 1%, 10 MG/ML (20ML VIAL) ONE (07:23)
[2023-07-21] MEDS ORDERED: BUPIVACAINE HCL/PF 0.5% (5MG/ML) 10 ML VIAL ONE (07:23)
[2023-07-21] MEDS ORDERED: MIDAZOLAM HCL 2 MG/2 ML SINGLE DOSE VIAL ONE (08:27)
[2023-07-21] MEDS ORDERED: ceFAZolin SODIUM 1 GM VIAL ONE (08:42)
[2023-07-21] MEDS ORDERED: PROPOFOL 20 ML ONE (08:45)
[2023-07-21 10:11] VITALS: TEMP 97.3
[2023-07-21 10:21] VITALS: BP 130/73; PULSE 94
== END 2023-07-21 10:25 | disposition home or self-care (01) ==
LOC: FASU 06:26
PROVIDERS: ATTEND Orthopaedic Surgery
PROC: 01N50ZZ Release Median Nerve, Open Approach (ICD-10-PCS; principal; 2023-07-21 08:51)
PROC: 0LN70ZZ Release Right Hand Tendon, Open Approach (ICD-10-PCS; 2023-07-21 08:51)
DX: G56.01 Carpal tunnel syndrome, right upper limb (principal); M65.311 Trigger thumb, right thumb
CPT/HCPCS: 82962

== ENCOUNTER 2023-11-17 06:22 | Day surgery (SDC) | payer OTHER ==
[2023-11-13 14:12] VITALS: BMI 31.8
[2023-11-17] MEDS ORDERED: LIDOCAINE HCL 1%, 10 MG/ML (20ML VIAL) ONE (07:31)
[2023-11-17] MEDS ORDERED: PROPOFOL 20 ML ONE (07:56)
[2023-11-17] MEDS ORDERED: MIDAZOLAM HCL 2 MG/2 ML SINGLE DOSE VIAL ONE ×2 (07:56→08:32)
[2023-11-17] MEDS ORDERED: BUPIVACAINE HCL/PF 0.25% (2.5MG/ML) 10 ML VIAL ONE (08:43)
[2023-11-17] MEDS ORDERED: KETOROLAC TROMETHAMINE 30 MG/1 ML VIAL ONE (08:45)
[2023-11-17] MEDS ORDERED: ceFAZolin SODIUM 1 GM VIAL ONE (08:45)
[2023-11-17] MEDS ORDERED: ONDANSETRON 4 MG/2 ML VIAL ONE (08:45)
[2023-11-17] MEDS ORDERED: DEXAMETHASONE SOD PHOSPHATE 4 MG/1 ML VIAL ONE (08:45)
[2023-11-17] MEDS ORDERED: [UNRECOGNIZED DRUG - OTHER] SQ SCH (09:15)
[2023-11-17] MEDS ORDERED: TIRZEPATIDE 2.5 MG/0.5 ML SQ SCH (09:15)
[2023-11-17] MEDS ORDERED: INSULIN ASPART SQ SCH (09:15)
[2023-11-17] MEDS ORDERED: INSULIN (LEVEMIR) 100 UNITS/ML UNITS SQ SCH (09:30)
[2023-11-17 09:31] VITALS: RESP 18; TEMP 97.1
[2023-11-17] MEDS ORDERED: glipiZIDE 10 MG TABLET (FP) PO SCH (09:45)
[2023-11-17] MEDS ORDERED: VENLAFAXINE HCL 75 MG E.R. CAPSULES PO SCH (10:00)
[2023-11-17] MEDS ORDERED: LISINOPRIL 5 MG TABLET PO SCH (10:00)
[2023-11-17] MEDS ORDERED: PATIENT'S OWN MEDICATION (NON-FORMULARY) (Metformin Hcl [Metformin Er Osmotic] 1,000 MG Ta PO SCH (10:00)
[2023-11-17 10:25] VITALS: BP 130/72; PULSE 92
[2023-11-17] MEDS ORDERED: ROSUVASTATIN CA 20 MG TABLET PO SCH (22:00)
== END 2023-11-17 10:15 | disposition home or self-care (01) ==
LOC: FASU 06:22
PROVIDERS: ATTEND Orthopaedic Surgery
PROC: 01N50ZZ Release Median Nerve, Open Approach (ICD-10-PCS; principal; 2023-11-17 08:42)
DX: G56.02 Carpal tunnel syndrome, left upper limb (principal)
CPT/HCPCS: 82962